=== PATIENT | male | born 1935 | race Caucasian/White ===

== ENCOUNTER 2016-07-27 18:54 | Emergency (ER) | payer MEDICARE ==
--- NOTE | 2016-07-27 19:46 | ERNOTE ---
Animal Bite ER Date of Service: 07/27/16 Presenting Symptoms: bitten Time Seen by Provider: 07/27/16 19:29 Source: patient Exam Limitations: no limitations Immunizations: IMMUNIZATION HX Immunizations Up to Date Yes History of Influenza Vaccine Yes Hx Pneumococcal Vaccination Yes Allergies/Adverse Reactions: Allergies tamsulosin HCl [From Flomax] Adverse Reaction (Severe, Verified 11/10/15 13:24) SVT Home Medications: HOME MEDICATIONS Bimatoprost [Lumigan 0.03% Ophthalmic Solution] 2.5 ml OP HS 09/30/14 [Last Taken Unknown] Amox Tr/Potassium Clavulanate [Augmentin 875-125 Tablet] 875 mg PO Q12H #14 tab 07/27/16 [Last Taken Unknown] Narrative: riding bike and bit by dog. The dog was uncollared. Apparently belonged to a household nearby. Tetanus is UTD. Onset Time: [employer] Location of Incident: Reports: neighbors, street Animal Type: Reports: dog Animal Appearance: healthy Animal's Immunization Status: Reports: unknown Observation/Capture: Reports: animal known Context of Attack: Reports: entered animal domain Location of Injury: Reports: lower extremity (L) - lateral ankle Review of Systems - Review of Systems Constitutional: Present: no symptoms reported Respiratory: Present: other - has mesothelioma Gastrointestinal/Abdominal: Present: no symptoms reported Genitourinary: Present: no symptoms reported - Patient's Past Medical History Patient History - Medical: No pertinent hx Patient History - Cardiac/Respiratory: No pertinent hx Patient History - Cancer: Other Patient History - Surgical Procedures: Cataracts, Other Patient History - Other: None - Family History Mother Family History - Medical: Family History - Cardiac/Respiratory: History Unknown Father Family History - Medical: Family History - Cardiac/Respiratory: Cardiac Arrest - Social History Living Situations: spouse Abuse History: No History of abuse Psych History: No pertinent hx Smoking Status: Former smoker Have you smoked in the past 12 months: No Do you dip or chew tobacco: No Alcohol Use: none Drug Use: none - Immunizations Immunizations Up to Date: Yes Hx Pneumococcal Vaccination: Yes History of Influenza Vaccine: Yes Physical Exam - Physical Exam General Appearance: Present: wd/wn, alert, no apparent distress Respiratory: Present: no respiratory distress Extremity Exam: Present: other - abrasion 1.5 x 1 cm laterally just above lateral malleolus, no puncture. ED Progress - Vital Signs Patient's Vital Signs:: I have reviewed the patient's vital signs. Vital Signs: Vital Signs 07/27/16 19:00 Temperature 36.7 C Pulse Rate 75 Respiratory 18 Rate Blood Pressure 150/92 O2 Sat by Pulse 95 Oximetry - Progress/Reassessment Chief Complaint: Animal Bite Plan - Plan Plan: Home. PRN Rx for Augmentin. Police to follow up re dog and immunization status. Departure Clinical Impression: Dog bite of ankle - Departure Disposition: Home self-care Condition: Good Instructions: Animal Bite Additional Instructions: Keep wound clean and bandaged. Wash with soap and water. If signs of infection develop take Augmentin. Follow up with police regarding the dog's immunization status or quarantine. Referrals: Antonio Patton DO [Primary Care Provider] - Prescriptions: Amox Tr/Potassium Clavulanate [Augmentin 875-125 Tablet] 875 mg PO Q12H #14 tab
[2016-07-27 20:58] VITALS: BP 145/91
== END 2016-07-27 19:45 | disposition home or self-care (01) ==
LOC: ER 18:54
DX: S90.512A Abrasion, left ankle, initial encounter (principal); W54.0XXA Bitten by dog, initial encounter; Y93.55 Activity, bike riding; Y92.410 Unspecified street and highway as the place of occurrence of the external cause